=== PATIENT | female | born 1995 | race Caucasian/White ===

== ENCOUNTER 2018-03-12 21:29 | Inpatient (IN) | payer OTHER, BC ==
[~2018-03-12] VITALS: Ht 165.1 cm; Wt 77.8 kg
[2018-03-12 21:30] VITALS: O2SAT 100
[2018-03-12] MEDS ORDERED: MORPHINE SULFATE 4 MG/ML INJ ONE (21:34)
[2018-03-12] MEDS ORDERED: ONDANSETRON HCL 4 MG/2 ML VIAL ONE (21:34)
[2018-03-12] MEDS ORDERED: ceFAZolin 2 GM PREMIX 50 ML ONE (21:38)
[2018-03-12] MEDS ORDERED: PROPOFOL 200 MG/20 ML AMP ONE (21:41)
[2018-03-12 21:43] VITALS: O2SAT 99
[2018-03-12] MEDS ORDERED: ceFAZolin 2 GM/DEX PREMIX 50 ML IV STA (21:55)
[2018-03-12] MEDS ORDERED: SODIUM CHLOR 0.9% 1000 ML INJ 1,000 ML IV ONE (22:00)
[2018-03-12] MEDS ORDERED: MORPHINE SULFATE 4 MG/ML INJ IV PUSH ONE (22:00)
[2018-03-12] MEDS ORDERED: ONDANSETRON HCL 4 MG/2 ML VIAL IV PUSH ONE ×2 (22:00→22:30)
[2018-03-12 22:06] LABS: AUTOMATED NEUTROPHIL # 4.2 TH/MM3 (1.8-7.7); BASOPHIL % 0.6 % (0.0-2.0); EOSINOPHIL # 0.1 TH/MM3 (0-0.4); EOSINOPHIL % 1.3 % (0.0-4.0); HEMATOCRIT 36.3 % (35.0-46.0); LYMPH % 36.8 % (9.0-44.0); LYMPHOCYTE # 2.8 TH/MM3 (1.0-4.8); MEAN CELL VOLUME 87.8 FL (80.0-100.0); MEAN CORPUSCULAR HEMOGLOBIN 29.1 PG (27.0-34.0); MEAN CORPUSCULAR HGB CONC 33.2 % (32.0-36.0); MEAN PLATELET VOLUME 7.9 FL (7.0-11.0); MONO % 7.1 % (0.0-8.0); MONOCYTE # 0.5 TH/MM3 (0-0.9); NEUT % 54.2 % (16.0-70.0); PLATELET COUNT 333 TH/MM3 (150-450); RED BLOOD COUNT 4.13 MIL/MM3 (4.00-5.30); RED CELL DISTRIBUTION WIDTH 12.9 % (11.6-17.2); WHITE BLOOD COUNT 7.7 TH/MM3 (4.0-11.0)
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
[2018-03-12] MEDS ORDERED: IOHEXOL 350 MG/ML 10 ML VIAL (for RAD DIAG) IVCONTRAST ONE (22:18)
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
[2018-03-12] MEDS ORDERED: HYDROmorphone HCL PF 2 MG/ML VIAL IV PUSH ONE (22:30)
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
[2018-03-12] MEDS ORDERED: MAGNESIUM HYDROXIDE SUSP 30 ML CUP PO PRN (22:45)
[2018-03-12] MEDS ORDERED: ENALAPRILAT 1.25 MG/ML VIAL IV PUSH PRN (22:45)
[2018-03-12] MEDS ORDERED: ONDANSETRON HCL 4 MG/2 ML VIAL IV PUSH PRN (22:45)
[2018-03-12 23:20] VITALS: BP 113/68; PULSE 85; RESP 16; O2SAT 100
[2018-03-13] VITALS: BP 108/65; PULSE 82; RESP 20; TEMP 97.7; O2SAT 99
[2018-03-13] MEDS ORDERED: LACTATED RINGER'S 1000 ML IV PRN (00:30)
[2018-03-13] MEDS ORDERED: POVIDONE IODINE 5% (ANTISEPSIS KIT) 4 APPLICATIONS EACH NARE PRN (00:30)
[2018-03-13] MEDS ORDERED: SODIUM CHLORID 0.9% 500 ML IV PRN (00:30)
[2018-03-13] MEDS ORDERED: CHLORHEXIDINE GLUCONATE 2 % 1 PACK (2 CLOTHS) TOPICAL PRN (00:30)
[2018-03-13] MEDS: SODIUM CHLOR 0.9% 1000 ML INJ 1,000 ML IV SCH ×5 (01:17→22:24)
[2018-03-13 01:32] LABS: BILIRUBIN, URINE NEG (NEG); BLOOD, URINE NEG (NEG); GLUCOSE,URINE NEG (NEG); KETONE, URINE NEG (NEG); NITRITE,URINE NEG (NEG); SQUAMOUS EPITHELIAL CELL URINE <1 /hpf (0-5); URINE COLOR LIGHT-YELLOW (YELLW/STRAW); URINE LEUKOCYTE ESTERASE NEG (NEG)
[2018-03-13] MEDS: MORPHINE SULFATE 4 MG/ML INJ IV PUSH PRN ×3 (01:58→22:15)
[2018-03-13] MEDS ORDERED: HYDROmorphone HCL PF 2 MG/ML VIAL IV ONE (03:30)
[2018-03-13 04:00] VITALS: BP 99/58; PULSE 84; RESP 20; TEMP 98.1; O2SAT 99
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
[2018-03-13 07:37] VITALS: BP 107/61; PULSE 87; RESP 19; TEMP 98.1; O2SAT 100
[2018-03-13] MEDS ORDERED: GENTAMICIN SULFATE 80 MG/2 ML VIAL ONE (08:17)
[2018-03-13] MEDS ORDERED: VANCOMYCIN HCL 1000 MG VIAL ONE (08:17)
[2018-03-13] MEDS ORDERED: SODIUM CHLOR 0.9% 250 ML INJ 250 ML ONE (08:18)
[2018-03-13] MEDS: DOCUSATE SODIUM 100 MG CAP PO SCH ×2 (09:00→20:17)
[2018-03-13 10:51] LABS: ALBUMIN 2.3 GM/DL (3.4-5.0); BICARBONATE 21.9 MEQ/L (21.0-32.0); CALCIUM 7.4 MG/DL (8.5-10.1); CALCIUM-PROTEIN CORRECTED 8.6 MG/DL (8.5-10.1); CREATININE 0.32 MG/DL (0.50-1.00); TOTAL BILIRUBIN ADULT 0.3 MG/DL (0.2-1.0)
[2018-03-13 10:53] LABS: AUTOMATED NEUTROPHIL # 2.5 TH/MM3 (1.8-7.7); BASOPHIL % 0.3 % (0.0-2.0); EOSINOPHIL # 0.1 TH/MM3 (0-0.4); EOSINOPHIL % 1.7 % (0.0-4.0); HEMATOCRIT 28.6 % (35.0-46.0); HEMOGLOBIN 9.8 GM/DL (11.6-15.3); LYMPH % 30.5 % (9.0-44.0); LYMPHOCYTE # 1.3 TH/MM3 (1.0-4.8); MEAN CELL VOLUME 87.5 FL (80.0-100.0); MEAN CORPUSCULAR HEMOGLOBIN 29.9 PG (27.0-34.0); MEAN CORPUSCULAR HGB CONC 34.2 % (32.0-36.0); MEAN PLATELET VOLUME 8.1 FL (7.0-11.0); MONO % 8.6 % (0.0-8.0); MONOCYTE # 0.4 TH/MM3 (0-0.9); NEUT % 58.9 % (16.0-70.0); PLATELET COUNT 200 TH/MM3 (150-450); RED BLOOD COUNT 3.26 MIL/MM3 (4.00-5.30); RED CELL DISTRIBUTION WIDTH 13.1 % (11.6-17.2); WHITE BLOOD COUNT 4.3 TH/MM3 (4.0-11.0)
[2018-03-13] MEDS ORDERED: KETAMINE HCL 500 MG/10 ML VIAL ONE (11:08)
[2018-03-13] MEDS ORDERED: ceFAZolin INJ 1,000 MG VIAL ONE (11:36)
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
[2018-03-13] MEDS ORDERED: DEXAMETHASONE SOD PHOS 4 MG/ML VIAL IV ONE (12:00)
[2018-03-13] MEDS ORDERED: PHENYLEPH/NS 1000 MCG/10 ML SYR IV ONE (12:00)
[2018-03-13] MEDS ORDERED: LACTATED RINGER'S 1000 ML INJ 1,000 ML IV ONE (12:00)
[2018-03-13] MEDS ORDERED: ONDANSETRON HCL 4 MG/2 ML VIAL IV ONE (12:00)
[2018-03-13] MEDS ORDERED: LIDOCAINE HCL 1% PF 5 ML SYRINGE OTHER ONE (12:00)
[2018-03-13] MEDS ORDERED: PROPOFOL 200 MG/20 ML AMP IV ONE (12:00)
[2018-03-13] MEDS ORDERED: ERGOCALCIFEROL (VIT D2) 50,000 UNIT CAP PO ONE (12:15)
[2018-03-13] MEDS ORDERED: diphenhydrAMINE HCL 25 MG CAP PO PRN (12:15)
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
[2018-03-13] MEDS ORDERED: DO NOT ADM ANY ANTICOAGULANT DRUGS PRN (12:39)
[2018-03-13] MEDS ORDERED: DOCU1CAP39 PO (12:43)
--- NOTE | 2018-03-13 12:52 | RADRPT ---
EXAM DATE/TIME: 03/13/2018 12:08 [facility] COMPARISON: FEMUR RIGHT (AP & LAT/2VWS), March 12, 2018, 21:33. INDICATIONS : Post-op right femur intramedullary nadira. MEDICAL HISTORY : None. SURGICAL HISTORY : None. ENCOUNTER: Subsequent ACUITY: 2 days PAIN SCORE: Non-responsive. LOCATION: Right Femur. FINDINGS: Multiple views of the femur were obtained and demonstrate interval placement of an intramedullary nadira transfixing an mid femur fracture. Fracture fragments are in near-anatomic alignment. CONCLUSION: Status post open rigid internal fixation. Syed Fox MD on March 13, 2018 at 12:49 Board Certified Radiologist. This report was verified electronically.
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
[2018-03-13] MEDS: CALCIUM/VITAMIN D 250 MG/125 U TAB PO SCH ×2 (13:00→17:22)
[2018-03-13] MEDS ORDERED: *morphine SULFATE 8 MG/ML PERIprocedure ONLY ONE (13:07)
[2018-03-13] MEDS ORDERED: MIDAZOLAM HCL 2 MG/2 ML VIAL ONE (13:16)
[2018-03-13] MEDS ORDERED: MORPHINE SULFATE 4 MG/ML INJ ONE (13:16)
--- NOTE | 2018-03-13 13:58 | OTSOAPIP ---
RECEIVED OCCUPATIONAL THERAPY ORDERS. PATIENT IS OFF FLOOR IN OR. WILL FOLLOW UP WITH PATIENT TOMORROW. INTERDISCIPLINARY COMMUNICATION: REVIEWED ELECTRONIC MEDICAL RECORD, SPOKE WITH RN Therapist: Audra Anderson OTR/Tram Signature on file
[2018-03-13 16:00] VITALS: BP 90/52; PULSE 69; RESP 19; TEMP 98; O2SAT 98
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
[2018-03-13 20:10] VITALS: BP 104/57; PULSE 88; RESP 18; TEMP 98.4; O2SAT 100
[2018-03-13] MEDS: PANTOPRAZOLE SODIUM 40 MG VIAL IVP SCH ×2 (22:15→22:28)
[2018-03-14] VITALS: BP 93/52; PULSE 114; RESP 18; TEMP 98.2; O2SAT 99
--- NOTE | 2018-03-14 07:03 | PD.ORT.PN ---
Subjective Subjective Remarks Resting comfortably in bed with boyfriend Objective Vitals Vital Signs Date Time Temp Pulse Resp B/P (MAP) Pulse Ox O2 Delivery O2 Flow Rate FiO2 03/14/18 00:00 98.2 114 18 93/52 (66) 99 03/13/18 20:10 98.4 88 18 104/57 (73) 100 03/13/18 16:00 98.0 69 19 90/52 (65) 98 03/13/18 13:35 80 16 96 Room Air 03/13/18 13:30 97.6 82 16 106/65 (79) 95 Room Air 03/13/18 13:15 83 15 101/60 (74) 94 Room Air 03/13/18 13:12 15 03/13/18 13:00 84 15 99/57 (71) 100 Nasal Cannula 2 03/13/18 12:45 82 15 96/54 (68) 98 Nasal Cannula 2 03/13/18 12:35 97.7 83 14 95/51 (66) 100 Nasal Cannula 3 03/13/18 07:37 98.1 87 19 107/61 (76) 100 I/O 03/13/18 03/13/18 03/13/18 03/14/18 03/14/18 03/14/18 07:00 15:00 23:00 07:00 15:00 23:00 Intake Total 500 ml 1200 ml 600 ml 800 ml Output Total 550 ml 1100 ml Balance -50 ml 100 ml 600 ml 800 ml Intake Oral 0 ml IV Total 500 ml 600 ml 800 ml Other 1200 ml Output Urine Total 550 ml 1050 ml Estimated Blood Loss 50 ml Result Diagram: 03/13/18 0850 03/13/18 1005 Imaging Last 24 hours Impressions Thoracic Spine CT 03/12/182137 Signed Impressions: Service Date/Time: Monday, March 12, 2018 22:00 - CONCLUSION: Negative study. Intact thoracic spine. Wili Rdz MD Pelvis X-Ray 03/12/182137 Signed Impressions: Service Date/Time: Monday, March 12, 2018 21:33 - CONCLUSION: Grossly intact pelvis. Wili Rdz MD Lumbar Spine CT 03/12/182137 Signed Impressions: Service Date/Time: Monday, March 12, 2018 22:00 - CONCLUSION: 1. Intact lumbar spine. 2. Age-indeterminate but probably nonacute central to left paracentral disc protrusions at both L4/L5 and L5/S1. Please see above. Wili Rdz MD Head CT 03/12/182137 Signed Impressions: Service Date/Time: Monday, March 12, 2018 22:00 - CONCLUSION: No bleed or other acute intracranial abnormality. Wili Rdz MD Chest X-Ray 03/12/182137 Signed Impressions: Service Date/Time: Monday, March 12, 2018 21:33 - CONCLUSION: No acute abnormality demonstrated. Wili Rdz MD Chest CT 03/12/182137 Signed Impressions: Service Date/Time: Monday, March 12, 2018 22:00 - CONCLUSION: Negative trauma chest CT. Wili Rdz MD Cervical Spine CT 03/12/182137 Signed Impressions: Service Date/Time: Monday, March 12, 2018 22:00 - CONCLUSION: Negative study. Intact cervical spine. Wili Rdz MD Abdomen/Pelvis CT 03/12/182137 Signed Impressions: Service Date/Time: Monday, March 12, 2018 22:00 - CONCLUSION: 1. No acute abnormality demonstrated. 2. Focal area of fatty infiltration of the liver. A benign-appearing left ovarian cyst is also seen. Wili Rdz MD Objective Remarks Right lower extremity: Clean dry dressings intact. Mild swelling. Intact sensation distally with active dorsiflexion plantar flexion of foot Right upper extremity: Healed surgical incision over humerus. Positive radial nerve palsy. She is able to flex her fingers but has difficulty extending. Good capillary refills and distal pulses Assessment & Plan Assessment and Plan 1) Right Femoral shaft Fx IM nail POD 1 Weightbearing as tolerated right lower extremity Begin daily dressing changes POD 2 Previous ORIF of right humerus approximately 1 month out. Nonweightbearing right upper extremity. Presents with previous radial nerve palsy Plan for discharge to home when safe. Discontinue Quiles Hemiwalker for ambulation Follow-up with orthopedic at home in 2 weeks Paper scripts on chart with given name of Syed Benítez Jr. Mar 14, 2018 07:03
[2018-03-14] MEDS ORDERED: WALKER/FOLDING1 MIS (07:05)
[2018-03-14] MEDS ORDERED: WHEEMIS3 (07:05)
[2018-03-14 07:47] VITALS: BP 107/55; PULSE 101; RESP 18; TEMP 99.2; O2SAT 98
[2018-03-14] MEDS: CHOLECALCIFEROL (VIT D3) 5000 UNIT CAP PO SCH (09:40)
[2018-03-14] MEDS: DOCUSATE SODIUM 100 MG CAP PO SCH ×2 (09:40→21:48)
[2018-03-14] MEDS: CALCIUM/VITAMIN D 250 MG/125 U TAB PO SCH ×3 (09:40→16:39)
[2018-03-14] MEDS: ENOXAPARIN SODIUM 30 MG/0.3 ML SYRINGE SQ SCH ×3 (12:00→22:27)
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
[2018-03-14] MEDS: GABAPENTIN 300 MG CAP PO SCH ×2 (13:07→16:40)
[2018-03-14] MEDS: KETOROLAC TROMETHAMINE 30 MG/ML (IVP) VIAL IV PUSH SCH ×3 (13:08→22:27)
[2018-03-14 13:30] VITALS: O2SAT 98
[2018-03-14] MEDS ORDERED: MORPHINE SULFATE 4 MG/ML INJ IV PUSH PRN (13:45)
[2018-03-14 15:50] VITALS: BP 120/65; PULSE 104; RESP 18; TEMP 98.6; O2SAT 99
[2018-03-14 20:40] VITALS: BP 115/57; PULSE 102; RESP 18; TEMP 97.9; O2SAT 97
[2018-03-14 22:06] VITALS: BP 113/68; PULSE 107; RESP 18; TEMP 98.8; O2SAT 98
[2018-03-14] MEDS: SODIUM CHLORIDE 0.9% FLUSH 10 ML FLUSH IV FLUSH PRN (22:13)
[2018-03-14] MEDS: PANTOPRAZOLE SODIUM 40 MG VIAL IVP SCH (22:13)
[2018-03-15] MEDS: SODIUM CHLORIDE 0.9% FLUSH 10 ML FLUSH IV FLUSH PRN ×2 (05:25→09:28)
[2018-03-15] MEDS: KETOROLAC TROMETHAMINE 30 MG/ML (IVP) VIAL IV PUSH SCH ×3 (05:25→18:54)
--- NOTE | 2018-03-15 06:43 | PD.ORT.PN ---
Subjective Subjective Remarks Resting comfortably. Progressing slowly with physical therapy Objective Vitals Vital Signs Date Time Temp Pulse Resp B/P (MAP) Pulse Ox O2 Delivery O2 Flow Rate FiO2 03/14/18 22:06 98.8 107 18 113/68 (83) 98 03/14/18 20:40 97.9 102 18 115/57 (76) 97 03/14/18 20:00 21 03/14/18 17:39 18 03/14/18 15:50 98.6 104 18 120/65 (83) 99 03/14/18 14:08 18 03/14/18 13:30 98 21 03/14/18 07:47 99.2 101 18 107/55 (72) 98 I/O 03/14/18 03/14/18 03/14/18 03/15/18 03/15/18 03/15/18 07:00 15:00 23:00 07:00 15:00 23:00 Intake Total 800 ml 1950 ml Output Total 1000 ml Balance 800 ml 950 ml Intake Oral 950 ml IV Total 800 ml 1000 ml Output Urine Total 1000 ml # Bowel Movements 0 Result Diagram: 03/13/18 0850 03/13/18 1005 Imaging Last 24 hours Impressions Thoracic Spine CT 03/12/182137 Signed Impressions: Service Date/Time: Monday, March 12, 2018 22:00 - CONCLUSION: Negative study. Intact thoracic spine. Wili Rdz MD Pelvis X-Ray 03/12/182137 Signed Impressions: Service Date/Time: Monday, March 12, 2018 21:33 - CONCLUSION: Grossly intact pelvis. Wili Rdz MD Lumbar Spine CT 03/12/182137 Signed Impressions: Service Date/Time: Monday, March 12, 2018 22:00 - CONCLUSION: 1. Intact lumbar spine. 2. Age-indeterminate but probably nonacute central to left paracentral disc protrusions at both L4/L5 and L5/S1. Please see above. Wili Rdz MD Head CT 03/12/182137 Signed Impressions: Service Date/Time: Monday, March 12, 2018 22:00 - CONCLUSION: No bleed or other acute intracranial abnormality. Wili Rdz MD Chest X-Ray 03/12/182137 Signed Impressions: Service Date/Time: Monday, March 12, 2018 21:33 - CONCLUSION: No acute abnormality demonstrated. Wili Rdz MD Chest CT 03/12/182137 Signed Impressions: Service Date/Time: Monday, March 12, 2018 22:00 - CONCLUSION: Negative trauma chest CT. Wili Rdz MD Cervical Spine CT 03/12/182137 Signed Impressions: Service Date/Time: Monday, March 12, 2018 22:00 - CONCLUSION: Negative study. Intact cervical spine. Wili Rdz MD Abdomen/Pelvis CT 03/12/182137 Signed Impressions: Service Date/Time: Monday, March 12, 2018 22:00 - CONCLUSION: 1. No acute abnormality demonstrated. 2. Focal area of fatty infiltration of the liver. A benign-appearing left ovarian cyst is also seen. Wili Rdz MD Objective Remarks Right lower extremity: Clean dry dressings intact. Mild swelling. Intact sensation distally with active dorsiflexion plantar flexion of foot Right upper extremity: Healed surgical incision over humerus. Positive radial nerve palsy. She is able to flex her fingers but has difficulty extending. Good capillary refills and distal pulses Assessment & Plan Assessment and Plan 1) Right Femoral shaft Fx IM nail POD 2 Weightbearing as tolerated right lower extremity Begin daily dressing changes Previous ORIF of right humerus approximately 1 month out. Nonweightbearing right upper extremity. Presents with previous radial nerve palsy Plan for discharge to home when safe. Hemiwalker for ambulation Follow-up with orthopedic at home in 2 weeks Paper scripts on chart with given name of Syed Benítez Jr. Mar 15, 2018 06:43
[2018-03-15 07:05] LABS: HEMATOCRIT 23.5 % (35.0-46.0); HEMOGLOBIN 8.1 GM/DL (11.6-15.3)
[2018-03-15 08:00] VITALS: BP 102/58; PULSE 88; RESP 20; TEMP 98.6; O2SAT 100
[2018-03-15] MEDS: MAGNESIUM HYDROXIDE SUSP 30 ML CUP PO SCH ×2 (09:00→21:00)
[2018-03-15] MEDS: LACTULOSE SYRUP 20 GM/30 ML CUP PO SCH (09:00)
[2018-03-15] MEDS: GABAPENTIN 300 MG CAP PO SCH ×3 (09:28→18:54)
[2018-03-15] MEDS: CHOLECALCIFEROL (VIT D3) 5000 UNIT CAP PO SCH (09:28)
[2018-03-15] MEDS: DOCUSATE SODIUM 100 MG CAP PO SCH ×2 (09:28→22:28)
[2018-03-15] MEDS: CALCIUM/VITAMIN D 250 MG/125 U TAB PO SCH ×3 (09:28→18:54)
[2018-03-15 11:47] VITALS: BP 100/59; PULSE 101; RESP 18; TEMP 98.1; O2SAT 100
[2018-03-15] MEDS: ENOXAPARIN SODIUM 30 MG/0.3 ML SYRINGE SQ SCH (12:00)
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
[2018-03-15 14:03] VITALS: O2SAT 98
[2018-03-15] MEDS: RIVAROXABAN 10 MG TAB PO SCH (15:52)
[2018-03-15 20:00] VITALS: BP 93/55; PULSE 100; RESP 18; TEMP 98.6; O2SAT 96
[2018-03-15 22:09] VITALS: BP 106/56; PULSE 112
[2018-03-15] MEDS: PANTOPRAZOLE SODIUM 40 MG VIAL IVP SCH (22:29)
[2018-03-16 00:03] VITALS: BP 100/58; PULSE 99; RESP 18; TEMP 98.4; O2SAT 99
[2018-03-16] MEDS: SODIUM CHLORIDE 0.9% FLUSH 10 ML FLUSH IV FLUSH PRN (05:53)
[2018-03-16] MEDS: KETOROLAC TROMETHAMINE 30 MG/ML (IVP) VIAL IV PUSH SCH ×4 (05:53→17:25)
[2018-03-16 07:30] VITALS: BP 99/54; PULSE 97; RESP 17; TEMP 98.4; O2SAT 99
[2018-03-16] MEDS ORDERED: BISACODYL EC 5 MG TABEC PO ONE (07:30)
[2018-03-16] MEDS ORDERED: BISACODYL 10 MG SUPP RECTAL ONE (07:30)
[2018-03-16] MEDS: MAGNESIUM HYDROXIDE SUSP 30 ML CUP PO SCH ×2 (09:00→21:00)
[2018-03-16] MEDS: LACTULOSE SYRUP 20 GM/30 ML CUP PO SCH (09:00)
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
[2018-03-16] MEDS: RIVAROXABAN 10 MG TAB PO SCH (11:09)
[2018-03-16] MEDS: CHOLECALCIFEROL (VIT D3) 5000 UNIT CAP PO SCH (11:09)
[2018-03-16] MEDS: DOCUSATE SODIUM 100 MG CAP PO SCH (11:10)
[2018-03-16] MEDS: CALCIUM/VITAMIN D 250 MG/125 U TAB PO SCH ×3 (11:10→17:25)
[2018-03-16] MEDS: GABAPENTIN 100 MG CAP PO SCH ×2 (11:10→17:25)
[2018-03-16 12:00] VITALS: BP 113/57; PULSE 97; RESP 17; TEMP 97.7; O2SAT 100
[2018-03-16 16:00] VITALS: BP 109/61; PULSE 94; RESP 18; TEMP 97.8; O2SAT 100
[2018-03-16 21:18] VITALS: BP 110/64; PULSE 90; RESP 18; TEMP 98.1; O2SAT 98
[2018-03-17] VITALS: BP 98/54; PULSE 109; RESP 18; TEMP 98.6; O2SAT 100
[2018-03-17] MEDS: KETOROLAC TROMETHAMINE 30 MG/ML (IVP) VIAL IV PUSH SCH ×5 (00:07→23:23)
[2018-03-17] MEDS: DOCUSATE SODIUM 100 MG CAP PO SCH ×3 (00:08→20:05)
[2018-03-17] MEDS: PANTOPRAZOLE SODIUM 40 MG VIAL IVP SCH ×2 (00:08→23:23)
[2018-03-17 08:00] VITALS: BP 110/62; PULSE 90; RESP 18; TEMP 97.5; O2SAT 99
[2018-03-17] MEDS ORDERED: MAGNESIUM CITRATE SOLN 300 ML BTL PO ONE (08:00)
[2018-03-17] MEDS: LACTULOSE SYRUP 20 GM/30 ML CUP PO SCH (09:00)
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
[2018-03-17 12:00] VITALS: BP 96/52; PULSE 89; RESP 18; TEMP 98.2; O2SAT 100
[2018-03-17] MEDS: CALCIUM/VITAMIN D 250 MG/125 U TAB PO SCH ×3 (13:00→17:55)
[2018-03-17] MEDS: GABAPENTIN 100 MG CAP PO SCH ×3 (13:00→17:55)
[2018-03-17] MEDS: CHOLECALCIFEROL (VIT D3) 5000 UNIT CAP PO SCH (13:19)
[2018-03-17] MEDS: MAGNESIUM HYDROXIDE SUSP 30 ML CUP PO SCH ×2 (13:19→20:05)
[2018-03-17] MEDS: RIVAROXABAN 10 MG TAB PO SCH (13:20)
[2018-03-17 16:00] VITALS: BP 102/56; PULSE 100; RESP 18; TEMP 97.8; O2SAT 95
[2018-03-17 20:01] VITALS: BP 102/50; PULSE 109; RESP 20; TEMP 98.4; O2SAT 100
[2018-03-17 23:20] VITALS: BP 113/57; PULSE 99; RESP 18; TEMP 98.5; O2SAT 100
[2018-03-18] MEDS: KETOROLAC TROMETHAMINE 30 MG/ML (IVP) VIAL IV PUSH SCH ×2 (05:20→12:49)
[2018-03-18 08:00] VITALS: BP 90/50; PULSE 91; RESP 18; TEMP 98; O2SAT 94
[2018-03-18] MEDS: LACTULOSE SYRUP 20 GM/30 ML CUP PO SCH (09:00)
[2018-03-18] MEDS: MAGNESIUM HYDROXIDE SUSP 30 ML CUP PO SCH ×2 (09:00→21:00)
--- NOTE | 2018-03-18 09:06 | PD.ORT.PN ---
Subjective Subjective Remarks Resting comfortably. Planning on discharge today to go back to [place] Objective Vitals Vital Signs Date Time Temp Pulse Resp B/P (MAP) Pulse Ox O2 Delivery O2 Flow Rate FiO2 03/17/18 23:20 98.5 99 18 113/57 (75) 100 03/17/18 20:01 98.4 109 20 102/50 (67) 100 03/17/18 16:00 97.8 100 18 102/56 (71) 95 03/17/18 12:00 98.2 89 18 96/52 (67) 100 I/O 03/17/18 03/17/18 03/17/18 03/18/18 03/18/18 03/18/18 07:00 15:00 23:00 07:00 15:00 23:00 Intake Total 240 ml Balance 240 ml Intake Oral 240 ml # Voids 2 7 2 # Bowel Movements 3 0 Result Diagram: 03/15/18 0600 Imaging Last 24 hours Impressions Thoracic Spine CT 03/12/182137 Signed Impressions: Service Date/Time: Monday, March 12, 2018 22:00 - CONCLUSION: Negative study. Intact thoracic spine. Wili Rdz MD Pelvis X-Ray 03/12/182137 Signed Impressions: Service Date/Time: Monday, March 12, 2018 21:33 - CONCLUSION: Grossly intact pelvis. Wili Rdz MD Lumbar Spine CT 03/12/182137 Signed Impressions: Service Date/Time: Monday, March 12, 2018 22:00 - CONCLUSION: 1. Intact lumbar spine. 2. Age-indeterminate but probably nonacute central to left paracentral disc protrusions at both L4/L5 and L5/S1. Please see above. Wili Rdz MD Head CT 03/12/182137 Signed Impressions: Service Date/Time: Monday, March 12, 2018 22:00 - CONCLUSION: No bleed or other acute intracranial abnormality. Wili Rdz MD Chest X-Ray 03/12/182137 Signed Impressions: Service Date/Time: Monday, March 12, 2018 21:33 - CONCLUSION: No acute abnormality demonstrated. Wili Rdz MD Chest CT 03/12/182137 Signed Impressions: Service Date/Time: Monday, March 12, 2018 22:00 - CONCLUSION: Negative trauma chest CT. Wili Rdz MD Cervical Spine CT 03/12/182137 Signed Impressions: Service Date/Time: Monday, March 12, 2018 22:00 - CONCLUSION: Negative study. Intact cervical spine. Wili Rdz MD Abdomen/Pelvis CT 03/12/182137 Signed Impressions: Service Date/Time: Monday, March 12, 2018 22:00 - CONCLUSION: 1. No acute abnormality demonstrated. 2. Focal area of fatty infiltration of the liver. A benign-appearing left ovarian cyst is also seen. Wili Rdz MD Objective Remarks Right lower extremity: Clean dry dressings intact. Mild swelling. Intact sensation distally with active dorsiflexion plantar flexion of foot Right upper extremity: Healed surgical incision over humerus. Positive radial nerve palsy. She is able to flex her fingers but has difficulty extending. Good capillary refills and distal pulses Assessment & Plan Assessment and Plan 1) Right Femoral shaft Fx IM nail POD 5 Weightbearing as tolerated right lower extremity Begin daily dressing changes Previous ORIF of right humerus approximately 1 month out. Nonweightbearing right upper extremity. Presents with previous radial nerve palsy Plan for discharge to home when safe. Hemiwalker for ambulation Follow-up with orthopedic at home in 2 weeks Paper scripts on chart with given name of Syed Benítez Jr. Mar 18, 2018 09:06
[2018-03-18] MEDS: CALCIUM/VITAMIN D 250 MG/125 U TAB PO SCH ×3 (09:30→17:23)
[2018-03-18] MEDS: RIVAROXABAN 10 MG TAB PO SCH (09:30)
[2018-03-18] MEDS: DOCUSATE SODIUM 100 MG CAP PO SCH ×2 (09:30→21:00)
[2018-03-18] MEDS: GABAPENTIN 100 MG CAP PO SCH ×3 (09:30→17:23)
[2018-03-18] MEDS: CHOLECALCIFEROL (VIT D3) 5000 UNIT CAP PO SCH (09:30)
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
[2018-03-18 11:39] VITALS: BP 100/62; PULSE 95; RESP 18; TEMP 98.5; O2SAT 100
[2018-03-18 16:00] VITALS: BP 103/59; PULSE 112; RESP 18; TEMP 98.6; O2SAT 96
[2018-03-18 19:14] VITALS: BP 120/72; PULSE 108; RESP 18; TEMP 98.5; O2SAT 97
[2018-03-18 21:53] LABS: AUTOMATED NEUTROPHIL # 3.9 TH/MM3 (1.8-7.7); BASOPHIL # 0.1 TH/MM3 (0-0.2); BASOPHIL % 0.8 % (0.0-2.0); EOSINOPHIL # 0.1 TH/MM3 (0-0.4); EOSINOPHIL % 1.7 % (0.0-4.0); HEMATOCRIT 30.9 % (35.0-46.0); HEMOGLOBIN 10.3 GM/DL (11.6-15.3); LYMPH % 26.2 % (9.0-44.0); LYMPHOCYTE # 1.6 TH/MM3 (1.0-4.8); MEAN CELL VOLUME 86.4 FL (80.0-100.0); MEAN CORPUSCULAR HEMOGLOBIN 28.8 PG (27.0-34.0); MEAN CORPUSCULAR HGB CONC 33.3 % (32.0-36.0); MEAN PLATELET VOLUME 7.7 FL (7.0-11.0); MONOCYTE # 0.4 TH/MM3 (0-0.9); NEUT % 64.3 % (16.0-70.0); PLATELET COUNT 270 TH/MM3 (150-450); RED BLOOD COUNT 3.58 MIL/MM3 (4.00-5.30); RED CELL DISTRIBUTION WIDTH 13.1 % (11.6-17.2); WHITE BLOOD COUNT 6.1 TH/MM3 (4.0-11.0)
[2018-03-18 22:05] LABS: BICARBONATE 25.1 MEQ/L (21.0-32.0); CREATININE 0.54 MG/DL (0.50-1.00)
[2018-03-19] VITALS: BP 102/56; PULSE 95; RESP 18; TEMP 98.1; O2SAT 98
[2018-03-19 08:00] VITALS: BP 107/63; PULSE 106; RESP 19; TEMP 98; O2SAT 100
[2018-03-19] MEDS: CHOLECALCIFEROL (VIT D3) 5000 UNIT CAP PO SCH (08:11)
[2018-03-19] MEDS: RIVAROXABAN 10 MG TAB PO SCH (08:12)
[2018-03-19] MEDS: CALCIUM/VITAMIN D 250 MG/125 U TAB PO SCH ×2 (08:12→12:43)
[2018-03-19] MEDS: GABAPENTIN 100 MG CAP PO SCH ×2 (08:12→12:43)
[2018-03-19] MEDS: DOCUSATE SODIUM 100 MG CAP PO SCH (08:13)
[2018-03-19] MEDS: LACTULOSE SYRUP 20 GM/30 ML CUP PO SCH (08:14)
[2018-03-19] MEDS: MAGNESIUM HYDROXIDE SUSP 30 ML CUP PO SCH (08:14)
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
[2018-03-19 12:00] VITALS: BP 101/59; PULSE 104; RESP 19; TEMP 97.9; O2SAT 99
[2018-03-19] MEDS ORDERED: WALKER WHEELS/F1 MIS (14:31)
== END 2018-03-19 16:12 | disposition home or self-care (01) | DRG 482 ==
LOC: NEPI 21:29 → EDBD 22:55 → NEDA 22:55 → N06B 03-13 00:16
PROVIDERS: ADMIT Surgery; ATTEND Surgery
PROC: 0QS806Z Reposition Right Femoral Shaft with Intramedullary Internal Fixation Device, Open Approach (ICD-10-PCS; principal; 2018-03-13 11:21)
DX: S72.321A Displaced transverse fracture of shaft of right femur, initial encounter for closed fracture (principal); F41.9 Anxiety disorder, unspecified; J45.909 Unspecified asthma, uncomplicated; Y93.89 Activity, other specified; Y92.481 Parking lot as the place of occurrence of the external cause; N83.202 Unspecified ovarian cyst, left side; G56.30 Lesion of radial nerve, unspecified upper limb; V43.22XA Person on outside of car injured in collision with other type car in nontraffic accident, initial encounter
CPT/HCPCS: 70450; 71045; 71260; 72125; 72129; 72132; 72170; 73552; 73560; 74177; 76000; 80048; 80053; 80307; 81001; 84702; 85014; 85018; 85025; 85384; 85610; 85730; 86850; 86900; 86901; 86920; 96365; 96375; 99291; C1713; C9113; E0113; G0390; J0690; J1100; J1170; J1580; J1650; J1885; J2250; J2270; J2370; J2405; J3010; J3370; J7030; J7050; J7120; L0150; L1830; Q9967